=== PATIENT | female | born 1960 | race Caucasian/White ===

== ENCOUNTER → 2016-06-12 | Outpatient (CLI) | payer OTHER ==
[~2016-06-12] MED LIST: CELEXA40 MG PO; CLARITIN10 MG PO; FLONASE 0.05% 121 EA NAS; HYDR25T PO; LISINOPRIL20 MG PO; NORCO 325 MG-101 TAB PO; NORTRIPTYLINE10 MG PO; OMEPRAZOLE40 MG PO; PERCOCET 325 MG1 TA2 PO
[2016-06-12 16:41] LABS: BASO % 0.4 % (0.0-1.0); BILIRUBIN NEGATIVE (NEGATIVE); BLOOD NEGATIVE (NEGATIVE); CLARITY CLEAR (CLEAR); COLOR YELLOW (YELLOW); EOS # 0.4 10*3/uL (0.0-0.4); EOS % 5.2 % (1.0-4.0); GLUCOSE NEGATIVE (NEGATIVE); HEMATOCRIT 40.6 % (37.0-47.0); KETONE NEGATIVE (NEGATIVE); LEUKO ESTERASE TRACE (NEGATIVE); LYMPH # 2.4 10*3/uL (1.3-4.4); LYMPH % 32.1 % (27.0-41.0); MEAN CELL VOLUME 84.2 fl (81.0-99.0); MEAN PLATELET VOLUME 9.9 fl (9.6-12.3); MONO # 0.6 10*3/uL (0.1-1.0); MONO % 8.5 % (3.0-9.0); NEUT # 4.1 10*3/uL (2.3-7.9); NEUT % 53.7 % (47.0-73.0); NITRITE NEGATIVE (NEGATIVE); PH 5.5 (5.0-9.0); PLATELET COUNT AUTOMATED 248 10*3/uL (130-400); PROTEIN NEGATIVE (NEGATIVE); RED BLOOD COUNT 4.82 10*6/uL (4.10-5.10); RED CELL DISTRI WIDTH 13.5 % (0-14.5); SPECIFIC GRAVITY <= 1.005 (1.005-1.030); UROBILINOGEN 0.2 E.U./dl (0.2-1.0); WHITE BLOOD COUNT 7.6 10*3/uL (4.8-10.8)
[2016-06-12 17:10] LABS: ALBUMIN 3.7 gm/dl (3.1-4.5); BILIRUBIN, TOTAL 0.3 mg/dl (0.2-1.0); MAGNESIUM 2.1 mg/dL (1.5-2.1); PHOSPHOROUS 3.5 mg/dL (2.5-4.9); POTASSIUM 4.1 mmol/L (3.5-5.1); TOTAL PROTEIN 7.3 gm/dL (6.4-8.2)
[2016-06-12 17:12] LABS: BACTERIA TRACE
[2016-06-12 18:36] LABS: VITAMIN D, 25-HYDROXY 38.3 ng/mL (30-100)
[2016-06-12 18:37] LABS: PTH INTACT 74.1 pg/mL (14.0-72.0)
== END | disposition home or self-care (01) ==
LOC: LAB 16:05
PROVIDERS: Internal Medicine Nephrology
DX: N18.3 Chronic kidney disease, stage 3 (moderate) (principal); E55.9 Vitamin D deficiency, unspecified

== ENCOUNTER → 2017-06-13 | Outpatient (CLI) | payer OTHER ==
[2017-06-13 16:13] LABS: BILIRUBIN NEGATIVE (NEGATIVE); BLOOD NEGATIVE (NEGATIVE); CLARITY CLEAR (CLEAR); COLOR YELLOW (YELLOW); GLUCOSE NEGATIVE (NEGATIVE); KETONE NEGATIVE (NEGATIVE); LEUKO ESTERASE 1+ (NEGATIVE); NITRITE NEGATIVE (NEGATIVE); SPECIFIC GRAVITY <= 1.005 (1.005-1.030); UROBILINOGEN 0.2 E.U./dl (0.2-1.0)
[2017-06-13 16:14] LABS: BASO % 0.4 % (0.0-1.0); EOS # 0.6 10*3/uL (0.0-0.4); EOS % 6.9 % (1.0-4.0); HEMATOCRIT 43.3 % (37.0-47.0); HEMOGLOBIN 13.5 g/dl (12.0-16.0); LYMPH # 2.2 10*3/uL (1.3-4.4); MEAN CELL VOLUME 84.2 fl (81.0-99.0); MEAN CORPUSCULAR HGB 26.3 pg (27.0-31.0); MEAN CORPUSCULAR HGB CONC 31.2 g/dl (33.0-37.0); MEAN PLATELET VOLUME 9.8 fl (9.6-12.3); MONO # 0.8 10*3/uL (0.1-1.0); MONO % 9.8 % (3.0-9.0); NEUT # 4.5 10*3/uL (2.3-7.9); NEUT % 55.7 % (47.0-73.0); PLATELET COUNT AUTOMATED 232 10*3/uL (130-400); RED BLOOD COUNT 5.14 10*6/uL (4.10-5.10); RED CELL DISTRI WIDTH 14.2 % (0-14.5); WHITE BLOOD COUNT 8.1 10*3/uL (4.8-10.8)
[2017-06-13 16:21] LABS: BACTERIA TRACE
[2017-06-13 16:39] LABS: PTH INTACT 108.9 pg/mL (14.0-72.0); VITAMIN D, 25-HYDROXY 22.2 ng/mL (30-100)
[2017-06-13 16:42] LABS: ALBUMIN 3.6 gm/dl (3.1-4.5); CREATININE 1.19 mg/dL (0.55-1.02); PHOSPHOROUS 3.2 mg/dL (2.5-4.9); POTASSIUM 4.3 mmol/L (3.5-5.1); TOTAL PROTEIN 7.4 gm/dL (6.4-8.2)
== END | disposition home or self-care (01) ==
LOC: LAB 15:45
PROVIDERS: Internal Medicine Nephrology
DX: N18.3 Chronic kidney disease, stage 3 (moderate) (principal); E55.9 Vitamin D deficiency, unspecified

== ENCOUNTER → 2018-01-06 | Outpatient (CLI) | payer OTHER ==
[2018-01-06 11:28] LABS: BASO % 0.4 % (0.0-1.0); EOS # 0.4 10*3/uL (0.0-0.4); EOS % 6.9 % (1.0-4.0); HEMATOCRIT 44.5 % (37.0-47.0); LYMPH # 1.9 10*3/uL (1.3-4.4); MEAN CELL VOLUME 86.9 fl (81.0-99.0); MEAN CORPUSCULAR HGB 27.3 pg (27.0-31.0); MEAN CORPUSCULAR HGB CONC 31.5 g/dl (33.0-37.0); MEAN PLATELET VOLUME 9.9 fl (9.6-12.3); MONO # 0.6 10*3/uL (0.1-1.0); MONO % 10.8 % (3.0-9.0); NEUT # 2.6 10*3/uL (2.3-7.9); NEUT % 46.7 % (47.0-73.0); PLATELET COUNT AUTOMATED 246 10*3/uL (130-400); RED BLOOD COUNT 5.12 10*6/uL (4.10-5.10); RED CELL DISTRI WIDTH 13.4 % (0-14.5); WHITE BLOOD COUNT 5.5 10*3/uL (4.8-10.8)
[2018-01-06 11:45] LABS: ALBUMIN 3.5 gm/dl (3.1-4.5); ALKALINE PHOSPHATASE 95 U/L (45-117); BUN 11 mg/dl (7-24); CHLORIDE 107 mmol/L (98-107); CHOLESTEROL 162 mg/dL (<200); CREATININE 1.11 mg/dL (0.55-1.02); HDL CHOLESTEROL 41 mg/dl (40-60); LDL CHOLESTEROL 88 mg/dL (9-159); POTASSIUM 4.1 mmol/L (3.5-5.1); SGOT/AST 23 IU/L (3-35); SGPT/ALT 39 U/L (12-78); SODIUM 140 mmol/L (136-145); TRIGLYCERIDES 166 mg/dl (<150); VLDL CHOLESTEROL 33 mg/dL (6-40)
== END | disposition home or self-care (01) ==
LOC: LAB 10:43 → RAD 11:30
PROVIDERS: Nurse Practitioner Primary Care
DX: Z13.820 Encounter for screening for osteoporosis (principal); S82.392S Other fracture of lower end of left tibia, sequela; M85.88 Other specified disorders of bone density and structure, other site; E55.9 Vitamin D deficiency, unspecified; I10 Essential (primary) hypertension; Z78.0 Asymptomatic menopausal state

== ENCOUNTER → 2018-07-18 | Outpatient (CLI) | payer OTHER ==
[2018-07-18 06:53] LABS: BILIRUBIN NEGATIVE (NEGATIVE); BLOOD NEGATIVE (NEGATIVE); CLARITY CLOUDY (CLEAR); COLOR YELLOW (YELLOW); GLUCOSE NEGATIVE (NEGATIVE); KETONE NEGATIVE (NEGATIVE); LEUKO ESTERASE 1+ (NEGATIVE); NITRITE NEGATIVE (NEGATIVE); PH 6.5 (5.0-9.0); UROBILINOGEN 0.2 E.U./dl (0.2-1.0)
[2018-07-18 07:04] LABS: BASO % 0.4 % (0.0-1.0); EOS # 0.7 10*3/uL (0.0-0.4); EOS % 12.5 % (1.0-4.0); HEMATOCRIT 41.3 % (37.0-47.0); HEMOGLOBIN 13.6 g/dl (12.0-16.0); LYMPH # 1.8 10*3/uL (1.3-4.4); LYMPH % 32.2 % (27.0-41.0); MEAN CELL VOLUME 83.9 fl (81.0-99.0); MEAN CORPUSCULAR HGB 27.6 pg (27.0-31.0); MEAN CORPUSCULAR HGB CONC 32.9 g/dl (33.0-37.0); MEAN PLATELET VOLUME 9.6 fl (9.6-12.3); MONO # 0.5 10*3/uL (0.1-1.0); MONO % 9.2 % (3.0-9.0); NEUT # 2.5 10*3/uL (2.3-7.9); NEUT % 45.7 % (47.0-73.0); PLATELET COUNT AUTOMATED 253 10*3/uL (130-400); RED BLOOD COUNT 4.92 10*6/uL (4.10-5.10); RED CELL DISTRI WIDTH 13.8 % (0-14.5); WHITE BLOOD COUNT 5.5 10*3/uL (4.8-10.8)
[2018-07-18 07:08] LABS: PHOSPHOROUS 3.2 mg/dL (2.5-4.9)
[2018-07-18 07:11] LABS: ALBUMIN 3.5 gm/dl (3.1-4.5); CREATININE 1.13 mg/dL (0.55-1.02); POTASSIUM 3.9 mmol/L (3.5-5.1); TOTAL PROTEIN 7.2 gm/dL (6.4-8.2)
[2018-07-18 07:20] LABS: BACTERIA 3+; EPITHELIAL CELLS TNTC; WBC 21-30 wbc/hpf (0-5)
[2018-07-18 08:20] LABS: PTH INTACT 57.5 pg/mL (18.5-88.0)
== END | disposition home or self-care (01) ==
LOC: LAB 05:49
PROVIDERS: Internal Medicine Nephrology; Nurse Practitioner Primary Care
DX: I12.9 Hypertensive chronic kidney disease with stage 1 through stage 4 chronic kidney disease, or unspecified chronic kidney disease (principal); N18.3 Chronic kidney disease, stage 3 (moderate); E55.9 Vitamin D deficiency, unspecified

== ENCOUNTER → 2019-08-07 | Outpatient (CLI) | payer OTHER ==
[2019-08-07 10:50] LABS: BASO % 0.5 % (0.0-1.0); EOS # 0.6 10*3/uL (0.0-0.4); EOS % 8.4 % (1.0-4.0); HEMATOCRIT 46.1 % (37.0-47.0); LYMPH # 2.5 10*3/uL (1.3-4.4); MEAN CELL VOLUME 86.2 fl (81.0-99.0); MEAN CORPUSCULAR HGB 27.5 pg (27.0-31.0); MEAN CORPUSCULAR HGB CONC 31.9 g/dl (33.0-37.0); MEAN PLATELET VOLUME 9.4 fl (9.6-12.3); MONO # 0.6 10*3/uL (0.1-1.0); MONO % 8.5 % (3.0-9.0); NEUT # 3.5 10*3/uL (2.3-7.9); NEUT % 48.5 % (47.0-73.0); PLATELET COUNT AUTOMATED 315 10*3/uL (130-400); RED BLOOD COUNT 5.35 10*6/uL (4.10-5.10); WHITE BLOOD COUNT 7.3 10*3/uL (4.8-10.8)
[2019-08-07 11:09] LABS: BILIRUBIN NEGATIVE (NEGATIVE); BLOOD NEGATIVE (NEGATIVE); CLARITY SL CLOUDY (CLEAR); COLOR YELLOW (YELLOW); GLUCOSE NEGATIVE (NEGATIVE); KETONE NEGATIVE (NEGATIVE); LEUKO ESTERASE 1+ (NEGATIVE); NITRITE NEGATIVE (NEGATIVE); PH 6.5 (5.0-9.0); UROBILINOGEN 0.2 E.U./dl (0.2-1.0)
[2019-08-07 11:10] LABS: BACTERIA 3+; EPITHELIAL CELLS 41-50
[2019-08-07 11:12] LABS: ALBUMIN 3.8 gm/dl (3.1-4.5); CREATININE 1.31 mg/dL (0.55-1.02); POTASSIUM 3.7 mmol/L (3.5-5.1); TOTAL PROTEIN 8.1 gm/dL (6.4-8.2)
[2019-08-07 11:47] LABS: VITAMIN D, 25-HYDROXY 48.9 ng/mL (30-100)
== END | disposition home or self-care (01) ==
LOC: LAB 10:20
PROVIDERS: Internal Medicine Nephrology
DX: N18.3 Chronic kidney disease, stage 3 (moderate) (principal); E55.9 Vitamin D deficiency, unspecified

== ENCOUNTER → 2020-09-05 | Outpatient (CLI) | payer OTHER | END | disposition home or self-care (01) | LOC: RAD 10:50 | PROVIDERS: ATTEND Orthopaedic Surgery | DX: S52.502D Unspecified fracture of the lower end of left radius, subsequent encounter for closed fracture with routine healing (principal); X58.XXXD Exposure to other specified factors, subsequent encounter ==

== ENCOUNTER → 2020-09-12 | Outpatient (CLI) | payer OTHER | END | disposition home or self-care (01) | LOC: ORTHO 00:58 | PROVIDERS: ATTEND Orthopaedic Surgery | DX: S52.502D Unspecified fracture of the lower end of left radius, subsequent encounter for closed fracture with routine healing (principal); X58.XXXD Exposure to other specified factors, subsequent encounter ==

== ENCOUNTER → 2020-09-20 | Outpatient (CLI) | payer OTHER | END | disposition home or self-care (01) | LOC: RAD 00:30 | PROVIDERS: ATTEND Nurse Practitioner Primary Care | DX: M85.851 Other specified disorders of bone density and structure, right thigh (principal); S62.102K Fracture of unspecified carpal bone, left wrist, subsequent encounter for fracture with nonunion; M85.80 Other specified disorders of bone density and structure, unspecified site; X58.XXXD Exposure to other specified factors, subsequent encounter ==

== ENCOUNTER → 2020-09-21 | Outpatient (CLI) | payer OTHER | END | disposition home or self-care (01) | LOC: ORTHO 02:02 | PROVIDERS: ATTEND Orthopaedic Surgery | DX: S52.202D Unspecified fracture of shaft of left ulna, subsequent encounter for closed fracture with routine healing (principal); X58.XXXD Exposure to other specified factors, subsequent encounter ==

== ENCOUNTER → 2020-12-03 | Outpatient (CLI) | payer OTHER ==
[2020-12-03 10:45] LABS: BASO % 0.4 % (0.0-1.0); EOS # 0.8 10*3/uL (0.0-0.4); EOS % 11.2 % (1.0-4.0); HEMATOCRIT 46.3 % (37.0-47.0); LYMPH # 2.2 10*3/uL (1.3-4.4); LYMPH % 29.7 % (27.0-41.0); MEAN CELL VOLUME 86.4 fl (81.0-99.0); MEAN CORPUSCULAR HGB 27.1 pg (27.0-31.0); MEAN CORPUSCULAR HGB CONC 31.3 g/dl (33.0-37.0); MEAN PLATELET VOLUME 9.4 fl (9.6-12.3); MONO # 0.6 10*3/uL (0.1-1.0); MONO % 7.4 % (3.0-9.0); NEUT # 3.9 10*3/uL (2.3-7.9); NEUT % 51.2 % (47.0-73.0); PLATELET COUNT AUTOMATED 313 10*3/uL (130-400); RED BLOOD COUNT 5.36 10*6/uL (4.10-5.10); RED CELL DISTRI WIDTH 13.6 % (0-14.5); WHITE BLOOD COUNT 7.5 10*3/uL (4.8-10.8)
[2020-12-03 10:46] LABS: BILIRUBIN Negative (Negative); BLOOD Negative (Negative); CLARITY Cloudy (Clear); COLOR Yellow (Yellow); GLUCOSE Negative (Negative); KETONE Negative (Negative); LEUKO ESTERASE 3+ (Negative); NITRITE Negative (Negative); PH 6.5 (4.5-8.0)
[2020-12-03 11:05] LABS: ALBUMIN 3.6 gm/dl (3.1-4.5); CREATININE 1.22 mg/dL (0.55-1.02); POTASSIUM 3.9 mmol/L (3.5-5.1); TOTAL PROTEIN 7.4 gm/dL (6.4-8.2)
[2020-12-03 11:12] LABS: BACTERIA 1+; EPITHELIAL CELLS 21-30; RBC 0-2 rbc/hpf (0-2); WBC 31-40 wbc/hpf (0-5)
[2020-12-03 11:55] LABS: PTH INTACT 60.4 pg/mL (18.5-88.0); VITAMIN D, 25-HYDROXY 41.9 ng/mL (30-100)
== END | disposition home or self-care (01) ==
LOC: LAB 10:12
PROVIDERS: ATTEND Internal Medicine Nephrology
DX: N18.30 Chronic kidney disease, stage 3 unspecified (principal); E55.9 Vitamin D deficiency, unspecified

== ENCOUNTER → 2021-01-23 | Outpatient (CLI) | payer OTHER | END | disposition home or self-care (01) | LOC: COVID19 15:27 | PROVIDERS: ATTEND Internal Medicine | DX: Z11.52 Encounter for screening for COVID-19 (principal) ==

== ENCOUNTER → 2021-03-27 | Outpatient (CLI) | payer OTHER ==
[2021-03-27 06:55] LABS: BASO % 0.3 % (0.0-1.0); EOS # 0.7 10*3/uL (0.0-0.4); EOS % 8.9 % (1.0-4.0); HEMATOCRIT 44.3 % (37.0-47.0); LYMPH # 3.1 10*3/uL (1.3-4.4); LYMPH % 40.1 % (27.0-41.0); MEAN CELL VOLUME 84.5 fl (81.0-99.0); MEAN CORPUSCULAR HGB 27.3 pg (27.0-31.0); MEAN CORPUSCULAR HGB CONC 32.3 g/dl (33.0-37.0); MEAN PLATELET VOLUME 9.5 fl (9.6-12.3); MONO # 0.8 10*3/uL (0.1-1.0); MONO % 10.2 % (3.0-9.0); NEUT # 3.1 10*3/uL (2.3-7.9); NEUT % 40.2 % (47.0-73.0); PLATELET COUNT AUTOMATED 289 10*3/uL (130-400); RED BLOOD COUNT 5.24 10*6/uL (4.10-5.10); RED CELL DISTRI WIDTH 13.9 % (0-14.5); WHITE BLOOD COUNT 7.7 10*3/uL (4.8-10.8)
[2021-03-27 07:38] LABS: ALBUMIN 3.4 gm/dl (3.1-4.5); CREATININE 1.3 mg/dL (0.55-1.02)
== END | disposition home or self-care (01) ==
LOC: LAB 06:21
PROVIDERS: ATTEND Nurse Practitioner Primary Care
DX: I10 Essential (primary) hypertension (principal); N39.0 Urinary tract infection, site not specified; E55.9 Vitamin D deficiency, unspecified; R63.5 Abnormal weight gain

== ENCOUNTER → 2021-05-11 | Outpatient (CLI) | payer OTHER ==
[2021-05-11 16:10] LABS: BASO % 0.4 % (0.0-1.0); EOS # 0.7 10*3/uL (0.0-0.4); EOS % 8.5 % (1.0-4.0); HEMATOCRIT 42.6 % (37.0-47.0); LYMPH # 2.5 10*3/uL (1.3-4.4); LYMPH % 31.4 % (27.0-41.0); MEAN CELL VOLUME 84.4 fl (81.0-99.0); MEAN CORPUSCULAR HGB 27.3 pg (27.0-31.0); MEAN CORPUSCULAR HGB CONC 32.4 g/dl (33.0-37.0); MEAN PLATELET VOLUME 9.9 fl (9.6-12.3); MONO # 0.7 10*3/uL (0.1-1.0); NEUT % 50.6 % (47.0-73.0); PLATELET COUNT AUTOMATED 288 10*3/uL (130-400); RED BLOOD COUNT 5.05 10*6/uL (4.10-5.10); RED CELL DISTRI WIDTH 13.7 % (0-14.5); WHITE BLOOD COUNT 7.9 10*3/uL (4.8-10.8)
[2021-05-11 16:41] LABS: ALKALINE PHOSPHATASE 83 U/L (45-117); BUN 12 mg/dl (7-24); CHLORIDE 103 mmol/L (98-107); POTASSIUM 3.7 mmol/L (3.5-5.1); SGOT/AST 20 IU/L (3-35); SGPT/ALT 36 U/L (12-78); SODIUM 139 mmol/L (136-145)
== END | disposition home or self-care (01) ==
LOC: LAB 15:46
PROVIDERS: ATTEND Nurse Practitioner Primary Care
DX: I10 Essential (primary) hypertension (principal); L90.0 Lichen sclerosus et atrophicus

== ENCOUNTER → 2021-10-03 | Outpatient (CLI) | payer OTHER | END | disposition home or self-care (01) | LOC: MAMMO 16:18 | PROVIDERS: ATTEND Family Medicine | DX: Z12.31 Encounter for screening mammogram for malignant neoplasm of breast (principal) ==

== ENCOUNTER → 2021-10-11 | Outpatient (CLI) | payer OTHER | END | disposition home or self-care (01) | LOC: CARD 10:18 | PROVIDERS: ATTEND Family Medicine | DX: I51.7 Cardiomegaly (principal); R01.1 Cardiac murmur, unspecified ==

== ENCOUNTER → 2021-11-16 | Day surgery (SDC) | payer OTHER ==
[~2021-11-16] VITALS: Ht 160 cm; Wt 104.3 kg
[~2021-11-16] MED LIST changes: +CALCIUM 600+D1 EAC4 PO; +HYDROCHLOROTH12.5 M2 PO; +VITAMIN D350 MC2 GT
[2021-11-16 08:01] VITALS: BP 131/66
[2021-11-16 08:23] VITALS: BP 149/75
[2021-11-16 08:38] VITALS: BP 156/84
[2021-11-16 08:51] VITALS: BP 164/79
== END | disposition home or self-care (01) ==
LOC: SDC 11-13 08:45
PROVIDERS: ATTEND Surgery
DX: Z12.11 Encounter for screening for malignant neoplasm of colon (principal); K57.30 Diverticulosis of large intestine without perforation or abscess without bleeding; K63.5 Polyp of colon; I10 Essential (primary) hypertension; K21.9 Gastro-esophageal reflux disease without esophagitis; Z90.49 Acquired absence of other specified parts of digestive tract; Z88.1 Allergy status to other antibiotic agents; Z88.6 Allergy status to analgesic agent; Z88.8 Allergy status to other drugs, medicaments and biological substances; Z79.899 Other long term (current) drug therapy; Z98.890 Other specified postprocedural states

== ENCOUNTER 2022-01-26 09:02 | Emergency (ER) | payer OTHER ==
[~2022-01-26] VITALS: Ht 157.4 cm; Wt 99.8 kg
[2022-01-26] MEDS ORDERED: LISINOPRIL40 MG PO (09:09)
[2022-01-26] MEDS ORDERED: ONDANSETRON4 MG SL (10:56)
== END 2022-01-26 11:01 | disposition home or self-care (01) ==
LOC: ED 09:02
DX: S09.90XA Unspecified injury of head, initial encounter (principal); M54.2 Cervicalgia; Z88.1 Allergy status to other antibiotic agents; Z88.8 Allergy status to other drugs, medicaments and biological substances; Z79.899 Other long term (current) drug therapy; Z98.51 Tubal ligation status; W01.198A Fall on same level from slipping, tripping and stumbling with subsequent striking against other object, initial encounter; Y93.89 Activity, other specified; Y92.89 Other specified places as the place of occurrence of the external cause; Y99.8 Other external cause status

== ENCOUNTER → 2023-09-30 | Outpatient (CLI) | payer OTHER ==
[~2023-09-30] MED LIST changes: +LISINOPRIL40 MG PO; +ONDANSETRON4 MG SL
== END | disposition home or self-care (01) ==
LOC: MAMMO 09:27
PROVIDERS: ATTEND Nurse Practitioner
DX: Z12.31 Encounter for screening mammogram for malignant neoplasm of breast (principal)

== ENCOUNTER → 2024-12-07 | Outpatient (CLI) | payer OTHER | END | disposition home or self-care (01) | LOC: RAD 13:10 → MAMMO 14:00 | PROVIDERS: ATTEND Nurse Practitioner Women's Health | DX: Z12.31 Encounter for screening mammogram for malignant neoplasm of breast (principal); Z13.820 Encounter for screening for osteoporosis; M81.0 Age-related osteoporosis without current pathological fracture ==